=== PATIENT | female | born 1985 | race Caucasian/White ===

== ENCOUNTER 2023-04-04 03:28 | Emergency (ER) | payer OTHER ==
[2023-04-04 04:23] LABS: BILIRUBIN,URINE NEGATIVE (NEGATIVE); GLUCOSE, URINE (UA) NEGATIVE (NEGATIVE); KETONES,URINE (UA) NEGATIVE (NEGATIVE); LEUKOCYTE ESTERASE, URINE NEGATIVE (NEGATIVE); NITRITE,URINE NEGATIVE (NEGATIVE); OCCULT BLOOD,URINE SMALL (NEGATIVE); PH,URINE 6.5 PH (5.0-7.5); PROTEIN,URINE NEGATIVE (NEGATIVE); UROBILINOGEN,URINE 0.2 (NORMAL) E.U./dL (NORMAL)
[2023-04-04 04:25] LABS: CLARITY,URINE CLEAR (CLEAR); HCG UR QUAL NEGATIVE
[2023-04-04 04:31] LABS: BACTERIA,URINE Few /HPF (None Seen); SQUAMOUS EPITHELIAL CELL,UR MOD Squamous (<= Few)
[2023-04-04] MEDS ORDERED: ACETAMINOPHEN 325 MG TABLET PO STA (05:16)
[2023-04-04] MEDS ORDERED: iohexoL-300 100 ML VIAL ONE (06:05)
[2023-04-04 06:06] LABS: BASOPHILS % (AUTO) 0.5 %; EOSINOPHILS # (AUTO) 0.2 10^3/uL (0.0-0.7); EOSINOPHILS % (AUTO) 2.6 %; HGB - HEMOGLOBIN 13.6 g/dL (12.0-16.0); LYMPHOCYTES # (AUTO) 2.4 10^3/uL (1.5-3.5); LYMPHOCYTES % (AUTO) 38.2 %; MEAN CORPUSCULAR HEMOGLOBIN 27.9 pg (27.0-31.0); MEAN CORPUSCULAR HGB CONC 31.6 g/dL (32.0-36.0); MEAN CORPUSCULAR VOLUME 88.1 fL (81.0-99.0); MEAN PLATELET VOLUME 10.7 fL (7.9-10.8); MONOCYTES # (AUTO) 0.6 10^3/uL (0.0-1.0); MONOCYTES % (AUTO) 9.2 %; NEUTROPHILS # (AUTO) 3.1 10^3/uL (1.5-6.6); NEUTROPHILS % (AUTO) 49.3 %; PLT - PLATELET COUNT 218 10^3/uL (130-450); RED BLOOD COUNT 4.88 10^6/uL (4.20-5.40); RED CELL DISTRIBUTION WIDTH 13.2 % (12.0-15.0); WHITE BLOOD COUNT 6.2 x10^3/uL (4.8-10.8)
[2023-04-04 06:16] LABS: ALBUMIN 3.9 g/dL (3.2-5.5); ALBUMIN/GLOBULIN RATIO 1.1 (1.0-2.2); BILIRUBIN,TOTAL 0.4 mg/dL (0.2-1.0); CALCIUM 8.8 mg/dL (8.5-10.3); CREATININE 0.8 mg/dL (0.4-1.0); POTASSIUM 4.1 mmol/L (3.5-5.0); TOTAL PROTEIN 7.3 g/dL (6.7-8.2)
--- NOTE | 2023-04-04 06:36 | ED Physician Documentation ---
History of Present Illness - Stated complaint Stated Complaint: FEMALE - Chief complaint Chief Complaint: Abd Pain - Additonal information Additional information: Patient 37-year-old female presenting with lower pelvic pain and dysuria. Symptoms began this evening. She reports that they have been getting progressively worse. Reports that she feels as though her "bladder is spasming". States has had kidney stones in the past. Denies fever, chills, chest pain, shortness of breath, vaginal discharge, concern for sexually transmitted infection. Review of Systems Constitutional: denies: Fever Eyes: denies: Loss of vision Ears: denies: Loss of hearing Nose: denies: Rhinorrhea / runny nose Throat: denies: Dental pain / toothache Cardiac: denies: Chest pain / pressure Respiratory: denies: Dyspnea GI: reports: Abdominal Pain. denies: Nausea, Vomiting, Constipation, Diarrhea : reports: Dysuria, Frequency PD PAST MEDICAL HISTORY - Allergies Allergies/Adverse Reactions: Allergies Allergy/AdvReac Type Severity Reaction Status Date / Time promethazine [From Phenergan] AdvReac Nausea Verified 04/04/23 03:38 PD ED PE NORMAL - Vitals Vital signs reviewed: Yes - General General: Alert and oriented X 3, No acute distress, Well developed/nourished - HEENT HEENT: Atraumatic, PERRL, EOMI, Ears normal, Moist mucous membranes, Pharynx benign - Neck Neck: Supple, no meningeal sign, No bony TTP, No adenopathy, Thyroid normal, No JVD, No bruit, C-Spine cleared by NEXUS criteria - Cardiac Cardiac: RRR, No murmur, No gallop - Respiratory Respiratory: No respiratory distress - Abdomen Abdomen: Normal bowel sounds - Female Female : Deferred - Rectal Rectal: Deferred - Back Back: No CVA TTP - Derm Derm: Normal color - Extremities Extremities: No deformity - Neuro Neuro: Alert and oriented X 3, supervisor contact and service clerks 2-12 intact, No motor deficit, Normal speech - Psych Psych: Normal mood Results - Vitals Vitals: Vital Signs - 24 hr 04/04/23 03:36 Temperature 36.4 C L Heart Rate 68 Respiratory 18 Rate Blood Pressure 110/56 L O2 Saturation 98 Oxygen O2 Source Room air - Labs Labs: Laboratory Tests 04/04/23 04/04/23 04/04/23 03:42 06:00 06:00 WBC 6.2 RBC 4.88 Hgb 13.6 Hct 43.0 MCV 88.1 MCH 27.9 MCHC 31.6 L RDW 13.2 Plt Count 218 MPV 10.7 Neut # (Auto) 3.1 Lymph # (Auto) 2.4 [place] # (Auto) 0.6 Eos # (Auto) 0.2 Baso # (Auto) 0.0 Absolute Nucleated RBC 0.00 Nucleated RBC % 0.0 Sodium 140 Potassium 4.1 Chloride 105 Carbon Dioxide 30 Anion Gap 5.0 L BUN 20 Creatinine 0.8 Estimated GFR (MDRD) 81 L Glucose 98 Calcium 8.8 Total Bilirubin 0.4 AST 16 ALT 20 Alkaline Phosphatase 72 Total Protein 7.3 Albumin 3.9 Globulin 3.4 Albumin/Globulin Ratio 1.1 Lipase 26 Urine Color YELLOW Urine Clarity CLEAR Urine pH 6.5 Ur Specific [place] 1.025 Urine Protein NEGATIVE Urine Glucose (UA) NEGATIVE Urine Ketones NEGATIVE Urine Occult Blood SMALL H Urine Nitrite NEGATIVE Urine Bilirubin NEGATIVE Urine Urobilinogen 0.2 (NORMAL) Ur Leukocyte Esterase NEGATIVE Urine RBC 6-10 H Urine WBC 4-5 Ur Squamous Epith Cells MOD Squamous H Urine Bacteria Few Ur Microscopic Review INDICATED Urine Culture Comments NOT INDICATED Urine HCG, Qual NEGATIVE PD Medical Decision Making - ED course Complexity details: reviewed results, considered differential ED course: Patient 37-year-old female presenting to the emergency department with lower pelvic pain and dysuria. Afebrile, hemodynamically stable on arrival to the emergency department. Urinalysis positive for RBCs but no clear indications of infection. Urine negative. Labs obtained within normal limits or nonactionable. CT of the abdomen pelvis is pending. Will be signing out to the oncoming physician, please see their documentation for further detail.
[2023-04-04] MEDS ORDERED: iohexoL-300 100 ML VIAL IVP ONE (06:57)
[2023-04-04 07:31] VITALS: BP 102/65; O2SAT 100
--- NOTE | 2023-04-04 08:19 | CT Report ---
PROCEDURE: ABDOMEN/PELVIS W INDICATIONS: lower abd pain, 3 mo post CONTRAST: Omni 300 100ml TECHNIQUE: After the administration of weight appropriate dose of intravenous contrast, 5 mm thick sections acqu ired from the diaphragms to the symphysis. 5 mm thick coronal and sagittal reformats were acquired. For radiation dose reduction, the following was used: automated exposure control, adjustment of mA and/or kV according to patient size. COMPARISON: None available for review FINDINGS: Image quality: Excellent. Lung bases and heart: Unremarkable. Liver: No solid mass. Gallbladder and biliary tree: No radiopaque stones or wall thickening. No biliary dilation. Spleen: No splenomegaly. Pancreas: No pancreatic ductal dilation. Adrenals: No adrenal nodule. Kidneys and ureters: No hydronephrosis. No renal cystic lesion which requires follow up. No solid mas s. Nonobstructing left-sided stones measuring up to 5 mm and approximately 300 Hounsfield units in de nsity. Bilateral ureters are normal in course and caliber. Bowel and peritoneum: No bowel distension. No pathologic free fluid. Normal appendix. Lymph nodes: No central or retroperitoneal adenopathy. Vessels: No infrarenal aortic aneurysm. PELVIS Reproductive organs: Unremarkable. Bladder: No abnormal wall thickening, accounting for underdistension. Pelvic lymph nodes: No pelvic adenopathy by size criteria. Bones: No aggressive osseous abnormality. Other: No significant ventral or inguinal hernia. IMPRESSION: CT abdomen and pelvis without acute abnormalities to explain patient's symptoms. Normal appendix. Nonobstructing left renal calculi. No significant discrepancy with initial interpretation by overnight radiologist. Reviewed by: Subhash Hopper MD on 04/04/2023 8:18 AM PDT Approved by: Subhash Hopper MD on 04/04/2023 8:18 AM PDT Station ID: [id number]
== END 2023-04-04 07:32 | disposition home or self-care (01) ==
LOC: ED 03:28
DX: R10.2 Pelvic and perineal pain (principal); R30.0 Dysuria
CPT/HCPCS: 36415; 74177; 80053; 81001; 81025; 83690; 85025; 87086; 99284; A9270; Q9967; 81003

== ENCOUNTER 2023-12-08 13:07 | Emergency (ER) | payer OTHER ==
[2023-12-08 13:32] VITALS: BP 119/69; O2SAT 98
--- NOTE | 2023-12-08 14:12 | XRAY Report ---
PROCEDURE: Ribs w/PA Chest 3+V RT INDICATIONS: cough/R rib pain TECHNIQUE: 2 views of the ribs were acquired, along with a single view chest. COMPARISON: None. FINDINGS: Surgical changes and devices: None. Bones and chest wall: No fractures or dislocations. No suspicious bony lesions. Overlying soft tis sues appear unremarkable. Lungs and pleura: No pleural effusions or pneumothorax. Lungs appear clear. Mediastinum: Mediastinal contours appear normal. Heart size is normal. IMPRESSION: No displaced rib fracture or pneumothorax. Reviewed by: Vinny Delgado MD on 12/08/2023 2:11 PM PDT Approved by: Vinny Delgado MD on 12/08/2023 2:11 PM PDT Station ID: [id number]
--- NOTE | 2023-12-08 15:21 | ED Physician Documentation ---
History of Present Illness - Stated complaint Stated Complaint: RIB PX - Chief complaint Chief Complaint: Trauma Ch/Bk - History obtained from History obtained from: Patient - Additonal information Additional information: Nonproductive cough for a month. No associated fevers. She said sinus pain in your pain as well. She is already on amoxicillin, Tessalon, and codeine. Last night while coughing, develop severe, right rib pain. PD PAST MEDICAL HISTORY - Past Medical History Past Medical History: Yes Cardiovascular: None Respiratory: Asthma Neuro: None Endocrine/Autoimmune: None GI: None OUTPATIENT PHLEBOTOMIST: None : None HEENT: None Psych: Anxiety Musculoskeletal: Fibromyalgia, Scoliosis, Other Derm: None - Past Surgical History Past Surgical History: Yes Ortho: Arthroscopic surgery /OUTPATIENT PHLEBOTOMIST: section, Other HEENT: Rhinoplasty - Present Medications Home Medications: Ambulatory Orders Medication Instructions Recorded Confirmed Escitalopram Oxalate [Lexapro] 5 mg PO DAILY 12/08/23 12/08/23 HYDROcod/ACETAM 5/325 [[place] 5/325] 1 - 2 tab PO Q6H PRN #15 tablet 12/08/23 buPROPion HCL [Wellbutrin Xl] 300 mg PO DAILY 12/08/23 12/08/23 predniSONE [Deltasone] 20 mg PO [id number] #21 tab 12/08/23 - Allergies Allergies/Adverse Reactions: Allergies Allergy/AdvReac Type Severity Reaction Status Date / Time promethazine [From Phenergan] AdvReac Nausea Verified 12/08/23 13:22 - Social History Does the pt smoke?: No Smoking Status: Never smoker Does the pt drink ETOH?: Yes Does the pt have substance abuse?: No - Immunizations Immunizations are current?: Yes PD ED PE NORMAL - Vitals Vital signs reviewed: Yes - General General: Alert and oriented X 3, No acute distress - HEENT HEENT: Ears normal, Pharynx benign - Neck Neck: Supple, no meningeal sign - Cardiac Cardiac: RRR, No murmur - Respiratory Respiratory: No respiratory distress, Clear bilaterally - Abdomen Abdomen: Non tender - Neuro Neuro: Alert and oriented X 3 Results - Vitals Vitals: Vital Signs - 24 hr 12/08/23 13:25 Temperature 36.5 C Heart Rate 88 Respiratory 20 Rate Blood Pressure 119/69 O2 Saturation 98 Oxygen O2 Source Room air - Rads (name of study) R rib/chest xr- neg Relevant Findings:: Final report received, EMP independent interpretation of test PD Medical Decision Making - ED course ED course: Rib pain from coughing, neg xr could be occult frx vs intercostal muscle tear. Will tx pain Pt req steroids too. Departure - Departure Disposition: 01 Home, Self Care Clinical Impression: Chest wall muscle strain, Bronchitis Condition: Good Record reviewed to determine appropriate education?: Yes Instructions: ED Bronchitis Asthmatic, ED Contusion Chest Wall Prescriptions: predniSONE [Deltasone] 20 mg PO [id number] #21 tab HYDROcod/ACETAM 5/325 [[place] 5/325] 1 - 2 tab PO Q6H PRN #15 tablet PRN Reason: Pain Comments: I sent your prescription to [facility] in [place] Do not drink or drive with narcotic pain killer Xray looking ok without obvious rib fracture or pneumonia. Forms: PCP List
== END 2023-12-08 15:30 | disposition home or self-care (01) ==
LOC: ED 13:07
DX: S29.011A Strain of muscle and tendon of front wall of thorax, initial encounter (principal); X50.3XXA Overexertion from repetitive movements, initial encounter; J40 Bronchitis, not specified as acute or chronic; M79.7 Fibromyalgia; Z79.899 Other long term (current) drug therapy
CPT/HCPCS: 99283

== ENCOUNTER 2023-12-13 12:27 | Emergency (ER) | payer OTHER ==
[2023-12-13 13:04] VITALS: O2SAT 97
--- NOTE | 2023-12-13 13:42 | XRAY Report ---
PROCEDURE: Chest 2V INDICATIONS: cough x 1 month TECHNIQUE: 2 views of the chest were acquired. COMPARISON: None. FINDINGS: Surgical changes and devices: None. Lungs and pleura: No pleural effusions or pneumothorax. Lungs are clear. Mediastinum: Mediastinal contours appear normal. Heart size is normal. Bones and chest wall: No suspicious bony lesions. Overlying soft tissues appear unremarkable. IMPRESSION: No acute cardiopulmonary process. Reviewed by: Vinny Delgado MD on 12/13/2023 1:40 PM PDT Approved by: Vinny Delgado MD on 12/13/2023 1:40 PM PDT Station ID: [id number]
--- NOTE | 2023-12-13 14:21 | ED Physician Documentation ---
PD KEANE HEENT - Stated complaint Stated Complaint: COUGH - Chief complaint Chief Complaint: Resp - Additional information Additional information: 38-year-old female With history of asthma and seasonal allergies presents emergency department for chronic dry cough. Patient says that she has had a cough now for about a month she is here few days ago and was started on a steroid taper and was given [place] for her rib pain. Patient says that the steroids have helped but she feels like at nighttime the steroid started to wear off and her dry cough comes back. She is also complaining of ongoing rib pain but she says that the [place] does not help but she says that she does not want any additional medication for this. She has had no worsening shortness of breath she says that she is going to go to the urgent care but she knew if there were to send her here to the emergency department for chest x-ray which is why she ended up just coming here. PD PAST MEDICAL HISTORY - Past Medical History Cardiovascular: None Respiratory: Asthma Neuro: None Endocrine/Autoimmune: None GI: None [employer]: None : None HEENT: None Psych: Anxiety Musculoskeletal: Fibromyalgia, Scoliosis, Other Derm: None - Past Surgical History Past Surgical History: Yes Ortho: Arthroscopic surgery /[employer]: section, Other HEENT: Rhinoplasty - Present Medications Home Medications: Ambulatory Orders Medication Instructions Recorded Confirmed Escitalopram Oxalate [Lexapro] 5 mg PO DAILY 12/08/23 12/13/23 HYDROcod/ACETAM 5/325 [[place] 5/325] 1 - 2 tab PO Q6H PRN #15 tablet 12/08/23 12/13/23 buPROPion HCL [Wellbutrin Xl] 300 mg PO DAILY 12/08/23 12/13/23 predniSONE [Deltasone] 20 mg PO [id number] #21 tab 12/08/23 12/13/23 Albuterol Sulf [Ventolin Hfa 1 - 2 puffs INH Q4HR PRN 12/13/23 12/13/23 Inhaler] Ipratropium/Albuterol [Duoneb] 3 ml INH Q6H PRN #15 each 12/13/23 Nebulizer and Compressor 1 each MC Q6HR PRN #1 ea 12/13/23 [Compressor Nebulizer System] - Allergies Allergies/Adverse Reactions: Allergies Allergy/AdvReac Type Severity Reaction Status Date / Time promethazine [From Phenergan] AdvReac Nausea Verified 12/13/23 13:03 - Social History Does the pt smoke?: No Smoking Status: Never smoker Does the pt drink ETOH?: Yes Does the pt have substance abuse?: No - Immunizations Immunizations are current?: Yes PD ED PE NORMAL - Vitals Vital signs reviewed: Yes - General General: Alert and oriented X 3, No acute distress, Well developed/nourished - HEENT HEENT: Atraumatic - Cardiac Cardiac: RRR, No gallop, Strong equal pulses - Respiratory Respiratory: No respiratory distress, Clear bilaterally Results - Vitals Vitals: Vital Signs - 24 hr 12/13/23 12/13/23 12/13/23 13:00 14:54 15:17 Temperature 36.1 C L Heart Rate 88 79 86 Respiratory 18 18 18 Rate Blood Pressure 131/61 H 106/57 L O2 Saturation 97 97 Oxygen O2 Source Room air - Rads (name of study) Chest x-ray Relevant Findings:: Final report received, EMP independent interpretation of test, Other (No acute cardiopulmonary abnormalities) PD Medical Decision Making - ED course ED course: 38-year-old female presents emergency department for ongoing dry chronic cough. Patient says that she overall feels better she was hoping to be seen today for nebulizer treatment because she is unable to get in with her primary care provider for a long time. She received 1 DuoNeb and had significant improvement of symptoms. Nebulizer prescription was sent to her preferred pharmacy with DuoNeb prescription. Patient was told to follow-up with her primary care provider for possible specialty referral for further workup of this chronic cough. All questions answered return precautions taught. Departure - Departure Disposition: 01 Home, Self Care Clinical Impression: Chronic cough Instructions: ED Bronchitis Asthmatic Prescriptions: Nebulizer and Compressor [Compressor Nebulizer System] 1 each MC Q6HR PRN #1 ea PRN Reason: Cough Ipratropium/Albuterol [Duoneb] 3 ml INH Q6H PRN #15 each PRN Reason: Cough Comments: Thank you for trusting us with your care. It sounds like overall your cough symptoms are significantly improving with the steroids that have recently been prescribed to you. I have sent a prescription of the nebulizer treatment to your preferred pharmacy as well as ipratropium albuterol combination therapy that you can take every 6 hours for coughing spells. Most importantly is very important that you follow-up with your primary care provider for further specialist referral such as pulmonology or [place] line attendant. Please come back to the emergency department for having any shortness of breath or chest pain. Forms: PCP List Discharge Date/Time: 12/13/23 15:17
[2023-12-13] MEDS: IPRATROPIUM/ALBUTEROL 3 ML NEB INH STA (14:52)
[2023-12-13 15:25] VITALS: BP 106/57
== END 2023-12-13 15:17 | disposition home or self-care (01) ==
LOC: ED 12:27
DX: R05.3 Chronic cough (principal); J45.909 Unspecified asthma, uncomplicated; M79.7 Fibromyalgia
CPT/HCPCS: 94640; 94664; 99283; 99284

== ENCOUNTER 2024-05-19 10:38 | Outpatient (CLI) | payer OTHER ==
--- NOTE | 2024-05-22 08:50 | Mammography Report ---
BILATERAL DIGITAL SCREENING MAMMOGRAM 3D/2D: 05/19/2024 CLINICAL: Baseline exam. Routine screening. Family history of breast cancer. No prior exams were available for comparison. There are scattered areas of fibroglandular density in both breasts (category b / 25%-50% glandular t issue). No significant masses, calcifications, or other findings are seen in either breast. IMPRESSION: NEGATIVE There is no mammographic evidence of malignancy. A 1 year screening mammogram is recommended. Based on Tyrer-Cuzick model (a risk assessment model), the patient's lifetime risk is 35.9% and her 1 0 year risk is 4.2%. If a patient has an elevated risk, a more comprehensive evaluation should be con sidered and/or a referral to a genetic counselor. The [place] [employer], [place] [employer], and NCCN Guidelines advise the consideration of Breast MRI as an adjunct to screening mammog diane in patients whose "Lifetime risk to develop breast cancer" is 20% or higher. This exam was interpreted at Station ID: [id number]. NOTE: For mammograms, a report in lay terms will be sent to the patient. Approximately 15% of breast malignancies will not be visualized mammographically. In the management of a palpable breast mass, a negative mammogram must not discourage biopsy of a clinically suspicious lesion. Electronically Signed By: Subhash vee/alexandria:05/19/2024 13:36:26 letter sent: No_Letter ACR BI-RADS Category 1: Negative [id number] PARENCHYMAL PATTERN: (A) - The breast(s) demonstrate(s) scattered fibroglandular densities. BI-RADS CATEGORY: (1) - 1 RECOMMENDATION: (ANNUAL) - Recommend routine annual screening mammography. [id number] 1 year screening LATERALITY: (B)
== END 2024-05-19 10:39 | disposition home or self-care (01) ==
LOC: DI 10:38
PROVIDERS: ATTEND Nurse Practitioner Family
DX: Z12.31 Encounter for screening mammogram for malignant neoplasm of breast (principal); R92.323 Mammographic fibroglandular density, bilateral breasts; Z80.3 Family history of malignant neoplasm of breast